=== PATIENT | male | born 1960 ===

== ENCOUNTER 2021-02-18 14:17 | Emergency (ER) | payer SELFPAY ==
[~2021-02-18] VITALS: Ht 182.9 cm; Wt 111.4 kg
[2021-02-18 15:50] LABS: BASOPHILS % (AUTO) 1 % (0-1); EOSINOPHILS % (AUTO) 2 % (1-7); LYMPHOCYTES % (AUTO) 18 % (22-44); MEAN CORPUSCULAR HEMOGLOBIN 31.2 pg (27.5-34.5); MEAN CORPUSCULAR HGB CONC 33.8 g/dL (33.2-36.2); MEAN PLATELET VOLUME 7.7 fL (7.4-10.4); MONOCYTES % (AUTO) 11 % (2-9); NEUTROPHILS % (AUTO) 69 % (42-75); PLATELET COUNT 239 x10^3/uL (130-400); RED BLOOD COUNT 5.07 x10^6/uL (4.38-5.82); RED CELL DISTRIBUTION WIDTH 13.3 % (9.4-14.8)
[2021-02-18 16:01] LABS: ALBUMIN 3.2 g/dL (3.4-5.0); ANION GAP 3 mmol/L (5-15); CALCIUM 8.7 mg/dL (8.5-10.1); CHLORIDE 106 mmol/L (98-107); CREATININE 0.96 mg/dL (0.7-1.3)
--- NOTE | 2021-02-18 17:06 | NUR ---
VS UPDATED. PT RESTING, BP CUFF, PULSE OX IN PLACE. PT STATES HASN'T TAKEN BP MEDS IN A COUPLE DAYS-FORGOT. PT WITH STROKE LIKE SYMPTOMS 1.5 WEEKS AGO, RESOLVED ON OWN. CT NEGATIVE. PT TAKES ELIQUIS DAILY FOR OVER A YEAR. PREVIOUS IVC FILTER/REMOVED, HX OF DVT AND PE. STATES HAD BLOOD CLOT EVEN AFTER BEING ON ELIQUIS. R FOOT SWELLING NOTED. PT UPDATED ON CT AND XR RESULTS. CALL LIGHT WITHIN REACH, URINAL PROVIDED.
[2021-02-18] MEDS ORDERED: LISINOPRIL 20 MG TABLET PO ONE (17:30)
[2021-02-18] MEDS ORDERED: OMEPRAZOLE 20 MG CAPSULE.DR ONE (17:43)
[2021-02-18] MEDS ORDERED: LISINOPRIL 20 MG TABLET ONE (17:46)
--- NOTE | 2021-02-18 17:51 | NUR ---
CONFIRMED WITH ERP TO GIVE LISINOPRIL AND HYDRALAZINE. UNABLE TO SCAN IN HYDRALAZINE, MED DISCONTINUED IN EMAR. CONTINUE TO MONITOR. CALL LIGHT WITHIN REACH.
[2021-02-18] MEDS ORDERED: HYDROcodone/APAP 10/325 MG TABLET ONE (18:32)
--- NOTE | 2021-02-18 18:39 | NUR ---
BP REPORTED TO ERP. PT OFFERED ADMISSION, IV MEDICATION BY ERP. PT REFUSES. NORCO 10MG GIVEN FOR PAIN. CONTINUE TO MONITOR BP AND DISCHARGE WHEN ABLE. CALL LIGHT WITHIN REACH. AT BS.
[2021-02-18] MEDS ORDERED: HYDROcodone/APAP 10/325 MG TABLET PO ONE (19:00)
--- NOTE | 2021-02-18 19:03 | NUR ---
REPORT TO GASPER RN, TRANSFER OF CARE AT THIS TIME.
--- NOTE | 2021-02-18 19:27 | NUR ---
AT BEDSIDE TO DISCUSS POC, MD WANTED TO HAVE PT ADMITTED BUT PT REFUSED, MD ASKED MULTIPLE TIMES FOR PT TO BE ADMITTED AND PT ADAMANT HE DOES NOT WANT TO BE ADMITTED, STATED THAT IF PT GETS DISCHARGED THEN PT IS TO STAY IN [place] FOR THE NIGHT AND TAKE HIS BLOOD PRESSURE WHILE AT HOME AND IF PTS BLOOD PRESSURE GETS OVER 200 SYSTOLIC THEN PT SHOULD RETURN TO THE ER, PT IS FROM [facility] AND HAS AT BEDSIDE AND STATED HE DOES NOT WANT PT TO BE DRIVING FAR DISTANCES UNTIL HIS BLOOD PRESSURE HAS BEEN NORMAL, PT AGREES TO THIS PLAN
[2021-02-18 19:39] VITALS: BP 170/107
--- NOTE | 2021-02-18 19:39 | NUR ---
PT STATES HE HAS A BLOOD PRESSURE CUFF IN HIS CAR AND HAS HIS BLOOD PRESSURE MEDICATIONS WELL BUT JUST HASNT TAKEN THEM DUE TO OTHER LIFE STRESSORS, THIS RN EDUCATED PT ON TAKING HIS MEDS ESPECIALLY SINCE PT HAS A HISTORY THAT MAKES HIS HIGH BLOOD PRESSURE CONCERNING, PT PROVIDED A CANE UPON DISCHARGE TO BETTER AMBULATE DUE TO HIS ANKLE
== END 2021-02-18 19:52 | disposition home or self-care (01) ==
LOC: ED 19:48
DX: S93.401A Sprain of unspecified ligament of right ankle, initial encounter (principal); I63.9 Cerebral infarction, unspecified; I10 Essential (primary) hypertension; Z87.891 Personal history of nicotine dependence; X58.XXXA Exposure to other specified factors, initial encounter; Y93.89 Activity, other specified; Y92.89 Other specified places as the place of occurrence of the external cause; Y99.8 Other external cause status
CPT/HCPCS: 29515; 36415; 70450; 80048; 82040; 85025; 93005; 99285